=== PATIENT | male | born 1985 | race African-American/Black ===

== ENCOUNTER 2016-09-01 15:51 | Emergency (ER) | payer SELFPAY ==
[~2016-09-01] VITALS: Ht 195.6 cm; Wt 86.4 kg
[2016-09-01] MEDS ORDERED: IBUPROFEN 800 MG TABLET PO ONE (16:00)
[2016-09-01 17:15] VITALS: BP 128/76
== END 2016-09-01 18:06 | disposition home or self-care (01) ==
LOC: EMS 15:53
DX: S52.602A Unspecified fracture of lower end of left ulna, initial encounter for closed fracture (principal); W01.198A Fall on same level from slipping, tripping and stumbling with subsequent striking against other object, initial encounter; Y93.89 Activity, other specified; Y92.89 Other specified places as the place of occurrence of the external cause; Y99.8 Other external cause status
CPT/HCPCS: 99284